=== PATIENT | male | born 1935 | race Caucasian/White ===

== ENCOUNTER 2016-07-06 17:41 | Emergency (ER) | payer OTHER, MEDICARE ==
[2016-11-19] MEDS ORDERED: TRAZODONE HCL50 M1 PO (22:22)
== END 2016-07-06 20:21 ==
LOC: EDMED 17:41
PROC: 0HQFXZZ Repair Right Hand Skin, External Approach (ICD-10-PCS; principal; 2016-07-06)
DX: S61.012A Laceration without foreign body of left thumb without damage to nail, initial encounter (principal); S60.222A Contusion of left hand, initial encounter; V49.88XA Car occupant (driver) (passenger) injured in other specified transport accidents, initial encounter

== ENCOUNTER 2016-07-08 20:30 | Emergency (ER) | payer MEDICARE ==
[2016-07-08] MEDS ORDERED: LIPITOR40 M1 PO (22:06)
[2016-07-08] MEDS ORDERED: ASPIR 8181 M1 PO (22:06)
[2016-07-08] MEDS ORDERED: PLAVIX75 M1 PO (22:06)
[2016-07-08] MEDS ORDERED: COZAAR25 M1 PO (22:07)
[2016-07-08] MEDS ORDERED: LASIX20 M1 PO (22:07)
[2016-07-08] MEDS ORDERED: OSTEO BI-FLEX1 EAC5 PO (22:07)
[2016-07-08] MEDS ORDERED: METOPROLOL TART25 M1 PO (22:08)
[2016-07-08] MEDS ORDERED: CENTRUM SILVER1 EAC5 PO (22:09)
[2016-07-08] MEDS ORDERED: PANTOPRAZOLE SO40 M3 PO (22:09)
[2016-07-08] MEDS ORDERED: XARELTO15 M1 PO (22:10)
[2016-07-08] MEDS ORDERED: PAXIL20 M1 PO (22:10)
[2016-07-08] MEDS ORDERED: AMBIEN10 M1 PO (22:11)
[2016-07-08] MEDS ORDERED: ALDACTONE25 M1 PO (22:11)
[2016-11-19] MEDS ORDERED: TRAZODONE HCL50 M1 PO (22:22)
== END 2016-07-08 22:30 ==
LOC: EDMED 20:30
PROC: 2W3KX1Z Immobilization of Left Finger using Splint (ICD-10-PCS; principal; 2016-07-08)
DX: S61.012A Laceration without foreign body of left thumb without damage to nail, initial encounter (principal); I25.10 Atherosclerotic heart disease of native coronary artery without angina pectoris; Z95.5 Presence of coronary angioplasty implant and graft; Z79.01 Long term (current) use of anticoagulants; Z79.82 Long term (current) use of aspirin; Z79.899 Other long term (current) drug therapy; W45.8XXA Other foreign body or object entering through skin, initial encounter